=== PATIENT | female | born 1960 | race Caucasian/White ===

== ENCOUNTER 2017-10-25 10:02 | Inpatient (IN) | payer OTHER ==
[~2017-10-25] VITALS: Ht 177.8 cm; Wt 79.2 kg
[~2017-10-25 10:02] MED LIST: ADVIL,NUPRIN,M200 MG PO; B-COMPLEX-VITA1 EACH PO; CIPROFLOXACIN500 M1 PO; CLONAZEPAM0.5 MG PO; CLONAZEPAM1 MG; CLONAZEPAM1 MG PO; KLONOPIN1 MG PO; LITHIUM CARBON300 M2 PO; OLANZAPINE5 MG PO; QUETIAPINE FUM100 MG PO; QUETIAPINE FUM200 MG PO; SEROQUEL XR200 MG; SEROQUEL XR200 MG PO; SEROQUEL100 MG PO; TOPAMAX200 MG PO; TOPIRAMATE200 MG PO; TRAMADOL HCL50 MG; VISTARIL50 M1; WELLBUTRIN; WELLBUTRIN SR200 MG PO
[2017-10-25 12:24] LABS: APPEARANCE CLEAR ((CLEAR)); BILIRUBIN NEGATIVE; BLOOD NEGATIVE; COLOR STRAW ((YELLOW)); GLUCOSE (STRIP) NEGATIVE; KETONES NEGATIVE; LEUKOCYTES NEGATIVE; NITRITE NEGATIVE; PROTEIN (STRIP) NEGATIVE; SPECIFIC GRAVITY 1.003 (1.000-1.030); UROBILINOGEN 0.2 MG/DL (0.2-1.0)
[2017-10-25 12:36] LABS: AMPHETAMINE NEGATIVE (500 ng/mL); BARBITURATES NEGATIVE (200 ng/mL); BENZODIAZEPINES NEGATIVE (150 ng/mL); BUPRENORPHINE NEGATIVE (10 ng/mL); COCAINE NEGATIVE (150 ng/mL); METHADONE NEGATIVE (200 ng/mL); METHAMPHETAMINE NEGATIVE (500 ng/mL); OPIATES (MORPHINE) NEGATIVE (100 ng/mL); OXYCODONE NEGATIVE (100 ng/mL); PHENCYCLIDINE NEGATIVE (25 ng/mL); PROPOXYPHENE NEGATIVE (300 ng/mL); THC CANNABINOIDS PRESUMPTIVE POSITIVE (50 ng/mL); TRICYCLIC ANTIDEPRESSANTS NEGATIVE (300 ng/mL)
[2017-10-25 12:39] LABS: BASOPHIL (%) 0.3 % (0-1); EOSINOPHIL (%) 2.4 % (0-5); EOSINOPHIL COUNT 0.2 K/uL (0-0.3); HEMATOCRIT 41.7 % (36.0-46.0); IMMATURE GRANULOCYTE (%) 0.2 % (0.0-0.7); LYMPHOCYTE (%) 23.1 % (15-42); LYMPHOCYTE COUNT 1.5 K/uL (1.0-2.8); MCH 30.8 PG (29.0-34.0); MCHC 33.6 G/DL (30.0-36.0); MCV 91.9 FL (83-99); MONOCYTE COUNT 0.4 K/uL (0-0.8); NEUTROPHIL COUNT 4.3 K/uL (1.8-6.4); PLATELET COUNT 161 K/uL (156-360); RBC DIS.WIDTH-CV 16.8 % (11.8-14.6); RBC DIS.WIDTH-SD 56.8 % (39-53); RED BLOOD COUNT 4.54 M/uL (3.80-5.20); WHITE BLOOD COUNT 6.3 K/uL (4.1-10.2)
[2017-10-25 12:47] LABS: CHLORIDE 111 mEq/L (99-109); POTASSIUM 3.5 mEq/L (3.7-5.4); SODIUM 144 mEq/L (136-147)
[2017-10-25 12:48] LABS: GLUCOSE 97 mg/dL (70-99)
[2017-10-25 12:52] LABS: CREATININE 0.8 mg/dL (0.6-1.3); GFR ESTIMATE (CALCULATED) > 59 mL/min/; SERUM ETHYL ALCOHOL 166 mg/dL
[2017-10-25 12:53] LABS: UREA NITROGEN (BUN) 8 mg/dL (9-23)
[2017-10-25] MEDS ORDERED: KLONOPIN1 MG PO (17:00)
[2017-10-25] MEDS ORDERED: WELLBUTRIN SR200 MG PO (17:00)
[2017-10-25] MEDS ORDERED: MINIPRESS2 MG PO (17:01)
[2017-10-25] MEDS ORDERED: SEROQUEL400 MG PO (17:01)
[2017-10-25 17:25] VITALS: BP 135/98
[2017-10-25 17:26] VITALS: BP 135/98
[2017-10-26 07:45] VITALS: BP 109/57
[2017-10-26 10:25] VITALS: BP 117/84
[2017-10-26 15:26] VITALS: BP 116/70
[2017-10-27 07:28] VITALS: BP 136/77
[2017-10-27 15:38] VITALS: BP 121/78
[2017-10-28 07:26] VITALS: BP 120/63
[2017-10-28 15:52] VITALS: BP 141/85
[2017-10-29 08:00] VITALS: BP 136/85
[2017-10-29 15:35] VITALS: BP 124/72
[2017-10-30 07:57] VITALS: BP 133/90
[2017-10-30] MEDS ORDERED: QUETIAPINE FUM300 MG PO (09:46)
[2017-10-30] MEDS ORDERED: VISTARIL25 MG PO (09:46)
[2017-10-30] MEDS ORDERED: BUPROPION HCL150 M2 PO (09:46)
[2017-10-30] MEDS ORDERED: BUSPAR10 MG PO (09:46)
[2017-10-30 15:37] VITALS: BP 132/74
[2017-10-31 07:32] VITALS: BP 101/64
[2017-10-31] MEDS ORDERED: MOTRIN600 MG PO (09:36)
== END 2017-10-31 12:43 | disposition home or self-care (01) | DRG 885 ==
LOC: EME 10:02 → EDOF 16:00 → 1WEST 16:00 → ENRESERV 16:46 → 1WEST 17:16
PROVIDERS: Emergency Medicine
DX: F20.0 Paranoid schizophrenia (principal); F41.1 Generalized anxiety disorder; F12.10 Cannabis abuse, uncomplicated; R45.851 Suicidal ideations; Y90.6 Blood alcohol level of 120-199 mg/100 ml; F10.129 Alcohol abuse with intoxication, unspecified; F17.200 Nicotine dependence, unspecified, uncomplicated; F32.9 Major depressive disorder, single episode, unspecified
CPT/HCPCS: 80048; 81003; 84999; 85025; 90839; 97150 GO; 97165 GO; 99281; 99285; G0480; Q0177

== ENCOUNTER 2017-11-19 18:02 | Inpatient (IN) | payer OTHER ==
[~2017-11-19] VITALS: Ht 175.3 cm; Wt 79.3 kg
[~2017-11-19 18:02] MED LIST changes: +BUPROPION HCL150 M2 PO; +BUSPAR10 MG PO; +MINIPRESS2 MG PO; +MOTRIN600 MG PO; +QUETIAPINE FUM300 MG PO; +SEROQUEL400 MG PO; +VISTARIL25 MG PO
[2017-11-19 22:03] LABS: HEMATOCRIT 39.8 % (36.0-46.0); HEMOGLOBIN 13.2 G/DL (11.9-15.5); MCH 30.6 PG (29.0-34.0); MCHC 33.2 G/DL (30.0-36.0); MCV 92.1 FL (83-99); RBC DIS.WIDTH-CV 14.9 % (11.8-14.6); RBC DIS.WIDTH-SD 50.4 % (39-53); RED BLOOD COUNT 4.32 M/uL (3.80-5.20); WHITE BLOOD COUNT 7.2 K/uL (4.1-10.2)
[2017-11-19 22:06] LABS: PLATELET COUNT 300 K/uL (156-360)
[2017-11-19 22:17] LABS: CHLORIDE 111 mEq/L (99-109); POTASSIUM 4.4 mEq/L (3.7-5.4); SODIUM 145 mEq/L (136-147)
[2017-11-19 22:19] LABS: GLUCOSE 115 mg/dL (70-99)
[2017-11-19 22:22] LABS: SERUM ETHYL ALCOHOL 214 mg/dL
[2017-11-19 22:23] LABS: CREATININE 0.7 mg/dL (0.6-1.3); GFR ESTIMATE (CALCULATED) > 59 mL/min/
[2017-11-19 22:24] LABS: UREA NITROGEN (BUN) 7 mg/dL (9-23)
[2017-11-19 22:57] LABS: APPEARANCE CLEAR ((CLEAR)); BILIRUBIN NEGATIVE; BLOOD SMALL; COLOR YELLOW ((YELLOW)); GLUCOSE (STRIP) NEGATIVE; KETONES NEGATIVE; LEUKOCYTES NEGATIVE; NITRITE NEGATIVE; PROTEIN (STRIP) NEGATIVE; SPECIFIC GRAVITY 1.016 (1.000-1.030); UROBILINOGEN 0.2 MG/DL (0.2-1.0)
[2017-11-19 23:00] LABS: BACTERIA NONE SEEN /HPF; EPITHELIAL CELLS RARE /HPF; MUCUS TRACE /LPF; RED BLOOD CELLS 0-5 /HPF (0-5); UCUL ADDED? NO; WHITE BLOOD CELLS 0-5 /HPF (0-5)
[2017-11-19 23:10] LABS: AMPHETAMINE NEGATIVE (500 ng/mL); BARBITURATES NEGATIVE (200 ng/mL); BENZODIAZEPINES NEGATIVE (150 ng/mL); BUPRENORPHINE NEGATIVE (10 ng/mL); COCAINE NEGATIVE (150 ng/mL); METHADONE NEGATIVE (200 ng/mL); METHAMPHETAMINE NEGATIVE (500 ng/mL); OPIATES (MORPHINE) NEGATIVE (100 ng/mL); OXYCODONE NEGATIVE (100 ng/mL); PHENCYCLIDINE NEGATIVE (25 ng/mL); PROPOXYPHENE NEGATIVE (300 ng/mL); THC CANNABINOIDS NEGATIVE (50 ng/mL); TRICYCLIC ANTIDEPRESSANTS NEGATIVE (300 ng/mL)
[2017-11-20 04:28] VITALS: BP 108/72
[2017-11-20 07:36] VITALS: BP 114/59
[2017-11-20 16:02] VITALS: BP 133/80
[2017-11-21 07:57] VITALS: BP 118/78
[2017-11-21 16:12] VITALS: BP 113/74
[2017-11-22 08:18] VITALS: BP 118/72
[2017-11-22 16:59] VITALS: BP 129/71
[2017-11-23 09:14] VITALS: BP 106/79
[2017-11-23 16:30] VITALS: BP 83/48
[2017-11-23 19:15] VITALS: BP 141/84
[2017-11-24 07:58] VITALS: BP 109/63
[2017-11-24 15:20] VITALS: BP 112/70
[2017-11-25 07:42] VITALS: BP 109/60
[2017-11-25 15:46] VITALS: BP 134/80
[2017-11-26 08:10] VITALS: BP 101/55
[2017-11-26] MEDS ORDERED: MINIPRESS2 MG PO (09:04)
[2017-11-26] MEDS ORDERED: QUETIAPINE FUM300 MG PO (09:04)
[2017-11-26] MEDS ORDERED: BUPROPION HCL150 M2 PO (09:04)
[2017-11-26] MEDS ORDERED: ESCITALOPRAM OX10 MG PO (09:04)
== END 2017-11-26 15:52 | disposition other institution (70) | DRG 885 ==
LOC: EME 18:02 → ENRESERV 11-20 03:35 → 1WEST 11-20 03:39 → EDOF 11-20 03:39 → 1WEST 11-20 04:13
PROVIDERS: Emergency Medicine
DX: F20.9 Schizophrenia, unspecified (principal); F41.1 Generalized anxiety disorder; R45.851 Suicidal ideations; F10.239 Alcohol dependence with withdrawal, unspecified; F12.10 Cannabis abuse, uncomplicated; F17.200 Nicotine dependence, unspecified, uncomplicated; Y90.7 Blood alcohol level of 200-239 mg/100 ml; G89.29 Other chronic pain; M54.9 Dorsalgia, unspecified; Z81.8 Family history of other mental and behavioral disorders; Z91.14 Patient's other noncompliance with medication regimen
CPT/HCPCS: 80048; 81003; 85027; 90837; 97150 GO; 97165 GO; 99281; 99285; G0480; Q0177